=== PATIENT | male | born 1990 | race Caucasian/White ===

== ENCOUNTER → 2024-02-14 | Outpatient (CLI) | payer OTHER | LOC: MHCPAIN 13:20 | DX: M54.6 Pain in thoracic spine (principal); M79.18 Myalgia, other site; M47.814 Spondylosis without myelopathy or radiculopathy, thoracic region | CPT/HCPCS: G0463 ==

== ENCOUNTER → 2024-02-27 | Outpatient (CLI) | payer OTHER | LOC: MHCPAIN 08:22 | DX: M79.18 Myalgia, other site (principal) | CPT/HCPCS: J0665; J1010 ==

== ENCOUNTER → 2024-04-03 | Outpatient (CLI) | payer OTHER | LOC: MHCPAIN 08:39 | DX: M54.6 Pain in thoracic spine (principal); I10 Essential (primary) hypertension; M47.814 Spondylosis without myelopathy or radiculopathy, thoracic region | CPT/HCPCS: G0463 ==

== ENCOUNTER → 2024-04-29 | Outpatient (CLI) | payer OTHER ==
[~2024-04-29] MED LIST: Iohexol 300 - 10 ML VIAL ONE; Lidocaine PF 2% (20 MG/ML) 2 ML VIAL ONE
== END ==
LOC: MHCPAIN 08:38
DX: M54.14 Radiculopathy, thoracic region (principal)
CPT/HCPCS: J1100; Q9967